=== PATIENT | female | born 1990 | race Caucasian/White ===

== ENCOUNTER 2024-11-12 17:46 | Emergency (ER) | payer SELFPAY ==
[2024-11-12 18:13] LABS: Pregnancy Test - Urine (BHCG) Negative (Negative); Pregu Control Background? CLEAR/WHITE (CLR/WHITE); Pregu Control Bar Appear? YES (CONTROL BAR)
[2024-11-12 18:16] LABS: Specific Gravity 1.038 (1.002-1.036)
== END 2024-11-12 18:26 | disposition home or self-care (01) ==
LOC: BURERS 17:46
DX: N92.6 Irregular menstruation, unspecified (principal); F17.290 Nicotine dependence, other tobacco product, uncomplicated
CPT/HCPCS: 81025; 99284